=== PATIENT | male | born 1995 | race African-American/Black ===

== ENCOUNTER 2016-07-30 19:54 | Emergency (ER) | payer MEDICAID ==
[~2016-07-30] VITALS: Ht 170.2 cm; Wt 74.0 kg
[2016-07-31] MEDS ORDERED: LORAZEPAM 1MG TABLET PO ONE
[2016-07-31] MEDS ORDERED: IPRATROPIUM/ALBUTEROL 0.5-3(2.5)MG/3ML NEB HHN ONE
[2016-07-31 02:25] VITALS: BP 127/88
== END 2016-07-31 02:25 | disposition home or self-care (01) ==
LOC: ER 19:55
DX: J20.9 Acute bronchitis, unspecified (principal); F41.9 Anxiety disorder, unspecified; F17.210 Nicotine dependence, cigarettes, uncomplicated; F12.10 Cannabis abuse, uncomplicated
CPT/HCPCS: 71010; 94640; 99283; J7620

== ENCOUNTER 2016-10-30 02:03 | Emergency (ER) | payer MEDICAID ==
[~2016-10-30] VITALS: Ht 170.2 cm; Wt 78.0 kg
[2016-10-30 02:04] VITALS: BP 140/80
== END 2016-10-30 02:30 | disposition left against medical advice (07) ==
LOC: ER 02:03
DX: Z53.21 Procedure and treatment not carried out due to patient leaving prior to being seen by health care provider (principal); F17.210 Nicotine dependence, cigarettes, uncomplicated; F10.129 Alcohol abuse with intoxication, unspecified

== ENCOUNTER 2016-10-31 22:32 | Emergency (ER) | payer MEDICAID | END 2016-11-01 | disposition left against medical advice (07) | LOC: ER 22:32 | DX: S09.90XA Unspecified injury of head, initial encounter (principal); Z53.21 Procedure and treatment not carried out due to patient leaving prior to being seen by health care provider; X58.XXXA Exposure to other specified factors, initial encounter; Y93.89 Activity, other specified; Y92.89 Other specified places as the place of occurrence of the external cause; Y99.8 Other external cause status ==

== ENCOUNTER 2016-11-22 22:52 | Emergency (ER) | payer MEDICAID ==
[~2016-11-22] VITALS: Ht 175.3 cm; Wt 76.0 kg
[2016-11-22] MEDS ORDERED: MORPHINE SULFATE 4 MG/ML CPJ (NOT FOR IM USE) IV STA (23:21)
[2016-11-22] MEDS ORDERED: SODIUM CHLORIDE 0.9% 1,000 ML IV ONE (23:21)
[2016-11-22] MEDS ORDERED: ONDANSETRON HCL 4MG/2ML VIAL IV STA (23:21)
[2016-11-22] MEDS ORDERED: BACITRACIN ZINC OINT UDPKT TOP ONE (23:30)
[2016-11-22] MEDS ORDERED: CEFAZOLIN 1000MG PREMIX 50 ML IV ONE (23:30)
[2016-11-22] MEDS ORDERED: TETANUS, DIPHTHERIA, PERTUSSIS VAC/PF 0.5ML (>7YR OLD) IM ONE (23:30)
[2016-11-22 23:37] VITALS: BP 129/59
[2016-11-22 23:43] LABS: BASOPHILS % 0.6 % (0.0-2.0); EOSINOPHILS % 0.2 % (0.0-5.0); HEMATOCRIT. 36.9 % (42.0-52.0); HEMOGLOBIN. 11.9 g/dL (14.0-18.0); LYMPHOCYTES % 10.5 % (20.0-50.0); MEAN CORPUSCULAR HEMOGLOBIN 24.2 pg (28.0-32.0); MEAN CORPUSCULAR VOLUME 74.9 fL (80.0-94.0); MEAN PLATELET VOLUME 7.6 fl (7.4-10.4); MONOCYTES % 5.9 % (2.0-8.0); NEUTROPHILS % 82.8 % (40.0-76.0); PLATELET 190 x1000/uL (130-400); RED BLOOD CELL COUNT 4.93 mill/uL (4.7-6.1); RED CELL DISTRIBUTION WIDTH 14.7 % (11.6-14.6)
[2016-11-22 23:49] LABS: CHLORIDE 108 mEq/L (98-107)
[2016-11-22 23:54] LABS: CARBON DIOXIDE 28 mEq/L (21-32)
== END 2016-11-23 01:16 | disposition home or self-care (01) ==
LOC: ER 22:59
DX: S81.802A Unspecified open wound, left lower leg, initial encounter (principal); W34.00XA Accidental discharge from unspecified firearms or gun, initial encounter; Y93.89 Activity, other specified; Y92.89 Other specified places as the place of occurrence of the external cause; Y99.8 Other external cause status
CPT/HCPCS: 36415; 73590; 80048; 85025; 96365; 96375; 99285; J0690; J2270; J2405; J7030; Z7610

== ENCOUNTER 2017-06-28 20:30 | Emergency (ER) | payer OTHER, MEDICAID ==
[~2017-06-28] VITALS: Ht 177.8 cm; Wt 77.2 kg
[2017-06-29] MEDS ORDERED: HYDROCODONE/ACETAMINOPHEN 5/325MG TABLET PO ONE (00:30)
[2017-06-29 02:00] VITALS: BP 119/73
== END 2017-06-29 02:25 | disposition home or self-care (01) ==
LOC: ER 22:33
DX: S92.354A Nondisplaced fracture of fifth metatarsal bone, right foot, initial encounter for closed fracture (principal); F10.20 Alcohol dependence, uncomplicated; V23.4XXA Motorcycle driver injured in collision with car, pick-up truck or van in traffic accident, initial encounter; Y93.89 Activity, other specified; Y92.89 Other specified places as the place of occurrence of the external cause; Y99.8 Other external cause status
CPT/HCPCS: 73630; 99284

== ENCOUNTER 2017-07-30 08:58 | Emergency (ER) | payer OTHER, MEDICAID ==
[~2017-07-30] VITALS: Ht 177.8 cm; Wt 74.0 kg
[2017-07-30] MEDS ORDERED: SODIUM CHLORIDE 0.9% 1,000 ML IV ONE (10:59)
[2017-07-30] MEDS ORDERED: KETOROLAC 30MG/ML VIAL IV ONE (11:00)
[2017-07-30] MEDS ORDERED: ONDANSETRON HCL 4MG/2ML VIAL IV ONE (12:00)
[2017-07-30] MEDS ORDERED: MORPHINE SULFATE 4 MG/ML CPJ (NOT FOR IM USE) IV ONE (12:00)
[2017-07-30 13:09] VITALS: BP 101/51
== END 2017-07-30 13:13 | disposition home or self-care (01) ==
LOC: ER 09:51
DX: M54.5 Low back pain (principal); R07.89 Other chest pain; S50.811A Abrasion of right forearm, initial encounter; R03.0 Elevated blood-pressure reading, without diagnosis of hypertension; V29.3XXA Motorcycle rider (driver) (passenger) injured in unspecified nontraffic accident, initial encounter; Y93.89 Activity, other specified; Y92.89 Other specified places as the place of occurrence of the external cause
CPT/HCPCS: 71045; 72100; 96361; 96374; 96375; 99284; J1885; J2270; J2405; J7030; Z7610

== ENCOUNTER 2017-08-15 12:42 | Emergency (ER) | payer OTHER, MEDICAID ==
[~2017-08-15] VITALS: Ht 175.3 cm; Wt 73.0 kg
[2017-08-15] MEDS ORDERED: FENTANYL CITRATE/PF 50MCG/ML 2ML VIAL IV ONE (14:15)
[2017-08-15 14:34] LABS: CHLORIDE 109 mEq/L (98-107)
[2017-08-15 14:40] LABS: BASOPHILS % 0.2 % (0.0-2.0); EOSINOPHILS % 0.3 % (0.0-5.0); HEMATOCRIT. 38.8 % (42.0-52.0); HEMOGLOBIN. 12.4 g/dL (14.0-18.0); LYMPHOCYTES % 8.7 % (20.0-50.0); MEAN CORPUSCULAR HEMOGLOBIN 23.8 pg (28.0-32.0); MEAN CORPUSCULAR VOLUME 74.6 fL (80.0-94.0); MEAN PLATELET VOLUME 7.8 fl (7.4-10.4); MONOCYTES % 4.2 % (2.0-8.0); NEUTROPHILS % 86.6 % (40.0-76.0); PLATELET 218 x1000/uL (130-400); RED BLOOD CELL COUNT 5.21 mill/uL (4.7-6.1)
[2017-08-15] MEDS ORDERED: IOHEXOL-300 100 ML BOTTLE ONE (16:22)
[2017-08-15] MEDS ORDERED: SODIUM CHLORIDE 0.9% 500 ML IV ONE (17:00)
[2017-08-15] MEDS ORDERED: KETOROLAC 15MG/ML VIAL IV ONE (17:00)
[2017-08-15] MEDS ORDERED: PROCHLORPERAZINE 10MG/2ML VIAL IV ONE (17:00)
[2017-08-15] MEDS ORDERED: DIPHENHYDRAMINE 50MG/ML VIAL IV ONE (17:00)
[2017-08-15 17:35] VITALS: BP 143/82
== END 2017-08-15 17:39 | disposition home or self-care (01) ==
LOC: ER 13:00
DX: S06.0X0A Concussion without loss of consciousness, initial encounter (principal); S16.1XXA Strain of muscle, fascia and tendon at neck level, initial encounter; S30.811A Abrasion of abdominal wall, initial encounter; S70.311A Abrasion, right thigh, initial encounter; R51 Headache; F12.10 Cannabis abuse, uncomplicated; V29.88XA Motorcycle rider (driver) (passenger) injured in other specified transport accidents, initial encounter; Y92.89 Other specified places as the place of occurrence of the external cause; Y93.89 Activity, other specified; Y99.8 Other external cause status
CPT/HCPCS: 36415; 70450; 71045; 72125; 74177; 80053; 83690; 85025; 96361; 96374; 96375; 99285; J0780; J1200; J1885; J3010; J7040; Q9967; Z7610; L0172

== ENCOUNTER 2018-09-21 20:43 | Emergency (ER) | payer OTHER, MEDICAID ==
[~2018-09-21] VITALS: Ht 175.3 cm; Wt 68.0 kg
[2018-09-21] MEDS ORDERED: MORPHINE SULFATE 4 MG/ML CPJ (NOT FOR IM USE) IV STA (21:44)
[2018-09-21] MEDS ORDERED: ONDANSETRON HCL 4MG/2ML INJ IV STA (21:44)
[2018-09-21] MEDS ORDERED: SODIUM CHLORIDE 0.9% 1,000 ML IV ONE (21:44)
[2018-09-22 01:01] VITALS: BP 124/72
== END 2018-09-22 01:15 | disposition home or self-care (01) ==
LOC: ER 20:43
DX: S09.8XXA Other specified injuries of head, initial encounter (principal); S13.9XXA Sprain of joints and ligaments of unspecified parts of neck, initial encounter; S33.5XXA Sprain of ligaments of lumbar spine, initial encounter; V49.50XA Passenger injured in collision with unspecified motor vehicles in traffic accident, initial encounter; Y93.89 Activity, other specified; Y92.410 Unspecified street and highway as the place of occurrence of the external cause
CPT/HCPCS: 70450; 72125; 72128; 72131; 96374; 96375; 99284; J2270; J2405; J7030

== ENCOUNTER 2018-10-30 19:22 | Emergency (ER) | payer OTHER, MEDICAID ==
[~2018-10-30] VITALS: Ht 170.2 cm; Wt 75.1 kg
[2018-10-30] MEDS ORDERED: TETANUS, DIPHTHERIA, PERTUSSIS VAC/PF 0.5ML (>7YR OLD) IM ONE (23:15)
[2018-10-30] MEDS ORDERED: AMOXICILLIN/POTASSIUM CLAVULANATE 875/125MG TAB PO ONE (23:15)
[2018-10-31] MEDS ORDERED: KETOROLAC 60MG/2ML VIAL IM ONE (00:30)
[2018-10-31 02:58] VITALS: BP 132/78
== END 2018-10-31 03:03 | disposition home or self-care (01) ==
LOC: ER 19:22
DX: S62.603A Fracture of unspecified phalanx of left middle finger, initial encounter for closed fracture (principal); X58.XXXA Exposure to other specified factors, initial encounter; Y93.89 Activity, other specified; Y92.89 Other specified places as the place of occurrence of the external cause; Y99.8 Other external cause status; F12.10 Cannabis abuse, uncomplicated
CPT/HCPCS: 29130; 73130; 90471; 90715; 96372; 99283; J1885

== ENCOUNTER 2019-02-07 10:11 | Emergency (ER) | payer OTHER, MEDICAID ==
[~2019-02-07] VITALS: Ht 177.8 cm; Wt 78.0 kg
[2019-02-07 11:16] VITALS: BP 122/62
[2019-02-09] MEDS ORDERED: IBUPROFEN 600MG TABLET PO ONE (04:45)
== END 2019-02-07 11:31 | disposition home or self-care (01) ==
LOC: ER 10:11
DX: Z48.02 Encounter for removal of sutures (principal); F17.200 Nicotine dependence, unspecified, uncomplicated
CPT/HCPCS: 99281

== ENCOUNTER 2019-04-24 10:27 | Emergency (ER) | payer OTHER, MEDICAID ==
[~2019-04-24] VITALS: Ht 182.9 cm; Wt 77.0 kg
[2019-04-24] MEDS ORDERED: MORPHINE SULFATE 10 MG/ML CPJ IM ONE (11:45)
[2019-04-24] MEDS ORDERED: TETANUS, DIPHTHERIA, PERTUSSIS VAC/PF 0.5ML (>7YR OLD) IM ONE (11:45)
[2019-04-24] MEDS ORDERED: TRANEXAMIC ACID 1,000 MG/10 ML TP ONE (13:15)
[2019-04-24] MEDS ORDERED: CEPHALEXIN 250MG CAPSULE PO ONE (13:15)
[2019-04-24] MEDS ORDERED: BACITRACIN ZINC OINT UDPKT TOP ONE (13:15)
[2019-04-24] MEDS ORDERED: HYDROCODONE/ACETAMINOPHEN 5/325MG TABLET PO ONE (15:15)
[2019-04-24] MEDS ORDERED: LIDOCAINE 1%/EPI 1:100,000 10 ML VIAL IJ ONE (15:15)
[2019-04-24] MEDS ORDERED: LIDOCAINE HCL/EPINEPHRINE 1%-EPI 1:100,000 20 ML VIAL INFIL NR (15:30)
[2019-04-24 16:11] VITALS: BP 144/88
== END 2019-04-24 16:20 | disposition home or self-care (01) ==
LOC: ER 10:54
DX: S82.401A Unspecified fracture of shaft of right fibula, initial encounter for closed fracture (principal); M54.5 Low back pain; V29.88XA Motorcycle rider (driver) (passenger) injured in other specified transport accidents, initial encounter; Y93.55 Activity, bike riding; Y92.89 Other specified places as the place of occurrence of the external cause; Y99.8 Other external cause status
CPT/HCPCS: 29515; 72100; 73610; 90471; 90715; 96372; 99284; J2270; J3490

== ENCOUNTER 2019-06-07 09:42 | Emergency (ER) | payer OTHER, MEDICAID ==
[~2019-06-07] VITALS: Ht 175.3 cm; Wt 73.0 kg
[2019-06-07 10:09] VITALS: BP 147/74
== END 2019-06-07 10:58 | disposition home or self-care (01) ==
LOC: ER 10:36
DX: S92.901G Unspecified fracture of right foot, subsequent encounter for fracture with delayed healing (principal); S82.891G Other fracture of right lower leg, subsequent encounter for closed fracture with delayed healing; X58.XXXD Exposure to other specified factors, subsequent encounter; Z48.02 Encounter for removal of sutures
CPT/HCPCS: 99281

== ENCOUNTER 2020-01-18 07:17 | Emergency (ER) | payer OTHER, MEDICAID ==
[~2020-01-18] VITALS: Ht 177.8 cm; Wt 72.0 kg
[2020-01-18 08:29] VITALS: BP 127/30
== END 2020-01-18 10:14 | disposition left against medical advice (07) ==
LOC: ER 07:17
DX: Z53.21 Procedure and treatment not carried out due to patient leaving prior to being seen by health care provider (principal)

== ENCOUNTER 2020-07-30 01:37 | Emergency (ER) | payer OTHER, MEDICAID ==
[~2020-07-30] VITALS: Ht 177.8 cm; Wt 75.0 kg
[2020-07-30] MEDS ORDERED: KETOROLAC 30MG/ML VIAL IV STA (01:58)
[2020-07-30] MEDS ORDERED: SODIUM CHLORIDE 0.9% 1,000 ML IV ONE ×2 (02:15→04:00)
[2020-07-30 03:04] LABS: BASOPHILS % 0.3 % (0.0-2.0); EOSINOPHILS % 1.2 % (0.0-5.0); HEMATOCRIT. 42.6 % (42.0-52.0); HEMOGLOBIN. 13.6 g/dL (14.0-18.0); LYMPHOCYTES % 13.5 % (20.0-50.0); MEAN CORPUSCULAR HEMOGLOBIN 23.9 pg (28.0-32.0); MEAN CORPUSCULAR VOLUME 74.9 fL (80.0-94.0); MEAN PLATELET VOLUME 7.5 fl (7.4-10.4); PLATELET 319 x1000/uL (130-400); RED BLOOD CELL COUNT 5.68 mill/uL (4.7-6.1); RED CELL DISTRIBUTION WIDTH 14.2 % (11.6-14.6)
[2020-07-30 03:10] LABS: CHLORIDE 110 mEq/L (98-107)
[2020-07-30] MEDS ORDERED: DOXYCYCLINE HYCLATE 100MG CAPSULE PO ONE (03:30)
[2020-07-30] MEDS ORDERED: CEFTRIAXONE SODIUM 500 MG/VIAL IM ONE (03:30)
[2020-07-30] MEDS ORDERED: POTASSIUM CHLORIDE 20MEQ TABLET SR PO ONE (03:30)
[2020-07-30] MEDS ORDERED: DOXY100C2 MT (03:33)
[2020-07-30] MEDS ORDERED: IBUP-2029 MT (03:33)
[2020-07-30] MEDS ORDERED: LIDOCAINE HCL 1% 20ML VIAL (Pyxis) INJ INFIL ONE (04:15)
[2020-07-30 06:10] LABS: CLARITY URINE TURBID (CLEAR); COLOR URINE YELLOW (YELLOW); KETONES URINE NEGATIVE (NEGATIVE); LEUKOCYTE ESTERASE URINE 1+ (NEGATIVE); NITRITE URINE NEGATIVE (NEGATIVE); OCCULT BLOOD URINE NEGATIVE (NEGATIVE); PH URINE 8.5 (4.5-8.0); PROTEIN URINE NEGATIVE (NEGATIVE); SPECIFIC GRAVITY URINE 1.019 (1.005-1.030); UROBILINOGEN URINE 0.2 E.U./dL (0.2-1.0)
[2020-07-30 06:25] VITALS: BP 120/83
[2020-08-02 08:10] LABS: NEISSERIA GONORRHOEAE NAA Negative (Negative)
== END 2020-07-30 06:54 | disposition home or self-care (01) ==
LOC: ER 01:37
DX: N45.1 Epididymitis (principal); N50.811 Right testicular pain; E87.6 Hypokalemia; D72.829 Elevated white blood cell count, unspecified
CPT/HCPCS: 36415; 76870; 80053; 81003; 85025; 87491; 87591; 93005; 93976; 96361; 96372; 96374; 99285; J0696; J1885; J3490; J7030